=== PATIENT | male | born 1935 | race African-American/Black ===

== ENCOUNTER 2024-07-06 20:17 | Emergency (ER) | payer OTHER ==
[~2024-07-06] VITALS: Ht 182.9 cm; Wt 90.0 kg
[2024-07-06 20:25] VITALS: O2SAT 99
[2024-07-06] MEDS: SODIUM CHLORIDE 0.9% 1000ML BAG (SEPSIS BOLUS) IV ONE (21:14)
[2024-07-06 21:26] LABS: CHLORIDE 99 mEq/L (98-107); HEMATOCRIT. 33.1 % (42.0-52.0); HEMOGLOBIN. 10.9 g/dL (14.0-18.0); MEAN CORPUSCULAR HEMOGLOBIN 27.2 pg (28.0-32.0); MEAN CORPUSCULAR VOLUME 82.3 fL (80.0-94.0); MEAN PLATELET VOLUME 8.8 fl (7.4-10.4); PLATELET 269 x1000/uL (130-400); POTASSIUM 4.1 mEq/L (3.5-5.1); RED BLOOD CELL COUNT 4.02 mill/uL (4.7-6.1); RED CELL DISTRIBUTION WIDTH 17.5 % (11.6-14.6); SODIUM 131 mEq/L (136-145); WHITE BLOOD COUNT 7.4 x1000/uL (4.5-11.0)
[2024-07-06 21:27] LABS: CARBON DIOXIDE 26 mEq/L (21-32); DIFFERENTIAL COMMENT 1
[2024-07-06 21:28] LABS: CALCIUM 9.3 mg/dL (8.7-10.4)
[2024-07-06 21:32] LABS: CREATININE 0.9 mg/dL (0.6-1.3); GLUCOSE 117 mg/dL (70-105)
[2024-07-06 21:33] LABS: UREA NITROGEN BLOOD 9 mg/dL (9-23)
[2024-07-06 21:34] LABS: LACTIC ACID 2.2 mmol/L (0.4-2.0)
[2024-07-06 21:42] LABS: TROPONIN I HIGH SENSITIVITY 9 ng/L (3.0-53)
[2024-07-06 22:18] LABS: INR 1.4; PROTHROMBIN TIME 15.6 sec (9.6-11.0)
[2024-07-06 22:41] LABS: PLATELET ESTIMATE NORMAL
[2024-07-06 22:42] LABS: ANISOCYTOSIS 1+
[2024-07-06] MEDS: PIPERACILLIN/TAZO 3.375G/50ML 50 ML IV ONE (22:42)
[2024-07-07 00:12] LABS: CLARITY URINE CLEAR (CLEAR); COLOR URINE YELLOW (YELLOW); GLUCOSE URINE NEGATIVE (NEGATIVE); KETONES URINE NEGATIVE (NEGATIVE); LEUKOCYTE ESTERASE URINE NEGATIVE (NEGATIVE); NITRITE URINE NEGATIVE (NEGATIVE); OCCULT BLOOD URINE NEGATIVE (NEGATIVE); PROTEIN URINE NEGATIVE (NEGATIVE); SPECIFIC GRAVITY URINE 1.008 (1.005-1.030)
[2024-07-07] MEDS: VANCOMYCIN 1G PREMIX 200 ML IV ONE (00:51)
[2024-07-07] MEDS: VANCOMYCIN 1G PREMIX 200 ML IV NR (00:51)
[2024-07-07 01:31] VITALS: BP 120/90; PULSE 61; RESP 17; TEMP 36.50292; O2SAT 99
== END 2024-07-07 02:00 | disposition short-term general hospital (02) ==
LOC: ER 20:17 → EDBEDREQ 22:35 → CANBEDREQ 07-07 01:56 → ER 07-07 02:00
DX: A41.9 Sepsis, unspecified organism (principal); R65.20 Severe sepsis without septic shock; D64.9 Anemia, unspecified; E87.1 Hypo-osmolality and hyponatremia; E78.00 Pure hypercholesterolemia, unspecified; I10 Essential (primary) hypertension; Z85.46 Personal history of malignant neoplasm of prostate; Z98.890 Other specified postprocedural states
CPT/HCPCS: 99285; 96365; 71045; 96361; 80048; 81003; 83880; 83605; 85025; 85610; 87040; 87086; 84484; 36415; 84145; 93005; 96367; J2543; J7030; J3370